=== PATIENT | male | born 1950 | race Asian ===

== ENCOUNTER 2020-11-18 14:29 | Inpatient (IN) | payer MEDICAID ==
[~2020-11-18] VITALS: Ht 160 cm; Wt 58.2 kg
[2020-11-18] MEDS ORDERED: METO-558 PO (14:45)
[2020-11-18] MEDS ORDERED: AMLO2.5T96 PO (14:45)
[2020-11-18] MEDS ORDERED: ASPI-1450 PO (14:45)
[2020-11-18] MEDS ORDERED: IRBE150T51 PO (14:45)
[2020-11-18] MEDS ORDERED: ATOR20TA86 PO (14:45)
[2020-11-18] MEDS ORDERED: APIX2.5T PO (14:45)
[2020-11-18] MEDS ORDERED: COLC0.6T73 PO (14:45)
[2020-11-18] MEDS ORDERED: ALLO-45 PO (14:45)
[2020-11-18] MEDS ORDERED: ASPIRIN 81 MG CHEWABLE TABLET PO ONE (15:30)
[2020-11-18] MEDS ORDERED: DILTIAZEM HCL 5 MG/ML 5 ML VIAL IVP ONE (15:30)
[2020-11-18 15:45] LABS: BASOPHILS % (AUTO) 0.6 % (0.0-2.0); HEMATOCRIT 30.6 % (41-53); LYMPHOCYTES # (AUTO) 0.9 K/uL (1.0-4.8); LYMPHOCYTES % (AUTO) 14.1 % (22.0-44.0); MEAN CORPUSCULAR HEMOGLOBIN 29.1 pg (26.0-34.0); MEAN CORPUSCULAR HGB CONC 32.8 G/dL (31.0-37.0); MEAN CORPUSCULAR VOLUME 89 fL (80-100); MONOCYTES # (AUTO) 0.8 K/uL (0.1-1.0); MONOCYTES % (AUTO) 12.3 % (2.0-9.0); NEUTROPHILS # (AUTO) 4.7 K/uL (1.8-7.7); PLATELET COUNT (AUTO) 288 K/uL (150-450); RED BLOOD CELL COUNT(AUTO) 3.44 MIL/uL (4.50-5.90)
[2020-11-18 15:58] LABS: INR 1.3 (0.9-1.1); PROTHROMBIN TIME 13.7 SEC (9.4-11.6)
[2020-11-18] MEDS ORDERED: DILTIAZEM HCL 125 MG in DEXTROSE 5%-WATER 100 ML IV PRN (16:00)
[2020-11-18 16:05] LABS: COVID AG,FIA SOURCE NASOPHARYNGEAL
[2020-11-18 16:11] LABS: ALBUMIN 2.3 g/dL (3.4-5.0); BILIRUBIN,TOTAL 0.6 mg/dL (0.1-1.0); CALCIUM, TOTAL 8.4 mg/dL (8.8-10.5); CREATININE 2.76 mg/dL (0.60-1.30); FREE T4 (FREE THYROXINE) 2.02 ng/dL (0.76-1.46); POTASSIUM 4.1 mmol/L (3.5-5.1); THYROID STIMULATING HORMONE 0.65 uIU/mL (0.36-3.74); TOTAL PROTEIN, SERUM 7.6 g/dL (6.4-8.2)
[2020-11-18] MEDS ORDERED: DOXYCYCLINE HYCLATE 100 MG in DEXTROSE 5%-WATER 100 ML IV ONE (16:30)
[2020-11-18] MEDS ORDERED: CefTRIAXone 1 GM/DEXTROSE 50 ML IV ONE (16:30)
[2020-11-18] MEDS ORDERED: 0.9% SODIUM CHLORIDE 10 ML SYRINGE IVP PRN (16:45)
[2020-11-18] MEDS ORDERED: ACETAMINOPHEN 325 MG TABLET PO PRN (17:00)
[2020-11-18] MEDS ORDERED: METOPROLOL SUCCINATE 50 MG ER TABLET PO SCH (17:00)
[2020-11-18] MEDS: FUROSEMIDE 20 MG/2 ML VIAL IVP SCH (17:15)
[2020-11-18 20:53] LABS: AMPHET/METH SCREEN,URINE NEGATIVE (NEGATIVE); BARBITURATE SCREEN, URINE NEGATIVE (NEGATIVE); BENZODIAZEPINES SCREEN,URINE NEGATIVE (NEGATIVE); CANNABINOID SCREEN,URINE NEGATIVE (NEGATIVE); COCAINE SCREEN,URINE NEGATIVE (NEGATIVE); METHADONE SCREEN, URINE NEGATIVE (NEGATIVE); OPIATE SCREEN,URINE NEGATIVE (NEGATIVE)
[2020-11-18 20:57] LABS: PHENCYCLIDINE SCREEN,URINE NEGATIVE (NEGATIVE)
[2020-11-18] MEDS ORDERED: APIXABAN 2.5 MG TABLET PO SCH (21:00)
[2020-11-18] MEDS: DOCUSATE SODIUM 100 MG CAPSULE PO SCH (21:00)
[2020-11-18] MEDS: METHIMAZOLE 5 MG TABLET PO SCH (21:11)
[2020-11-18] MEDS: HEPARIN SODIUM,PORCINE 5,000 UNITS/ML VIAL SQ SCH (21:11)
[2020-11-18 21:28] VITALS: BP 148/95
[2020-11-18] MEDS: METOPROLOL TARTRATE 25 MG TABLET PO SCH (23:52)
[2020-11-18 23:57] VITALS: BP 122/69
[2020-11-19] MEDS ORDERED: SODIUM CHLORIDE 0.9% 250 ML IV ONE (04:55)
[2020-11-19] MEDS: DOXYCYCLINE HYCLATE 100 MG in DEXTROSE 5%-WATER 100 ML IV SCH ×2 (05:02→17:16)
[2020-11-19 05:07] VITALS: BP 109/66
[2020-11-19] MEDS: METOPROLOL TARTRATE 25 MG TABLET PO SCH ×3 (06:00→18:23)
[2020-11-19 06:14] LABS: BASOPHILS % (AUTO) 0.4 % (0.0-2.0); EOSINOPHILS % (AUTO) 3.6 % (1.0-6.0); HEMATOCRIT 31.3 % (41-53); HEMOGLOBIN 10.2 g/dL (13.5-17.5); LYMPHOCYTES # (AUTO) 0.9 K/uL (1.0-4.8); LYMPHOCYTES % (AUTO) 12.5 % (22.0-44.0); MEAN CORPUSCULAR HEMOGLOBIN 28.8 pg (26.0-34.0); MEAN CORPUSCULAR HGB CONC 32.5 G/dL (31.0-37.0); MEAN CORPUSCULAR VOLUME 89 fL (80-100); MONOCYTES # (AUTO) 0.7 K/uL (0.1-1.0); MONOCYTES % (AUTO) 8.9 % (2.0-9.0); NEUTROPHILS # (AUTO) 5.5 K/uL (1.8-7.7); NEUTROPHILS % (AUTO) 74.6 % (40.0-70.0); PLATELET COUNT (AUTO) 314 K/uL (150-450); RED BLOOD CELL COUNT(AUTO) 3.53 MIL/uL (4.50-5.90); RED CELL DISTRIBUTION WIDTH 15.2 % (11.5-14.5)
[2020-11-19 06:58] LABS: ALBUMIN 2.4 g/dL (3.4-5.0); BILIRUBIN,TOTAL 0.5 mg/dL (0.1-1.0); CALCIUM, TOTAL 8.7 mg/dL (8.8-10.5); CREATININE 2.72 mg/dL (0.60-1.30); MAGNESIUM 2.2 mg/dL (1.80-2.40); POTASSIUM 4.8 mmol/L (3.5-5.1); TOTAL PROTEIN, SERUM 7.3 g/dL (6.4-8.2)
[2020-11-19 07:50] VITALS: BP 107/68
[2020-11-19] MEDS: HEPARIN SODIUM,PORCINE 5,000 UNITS/ML VIAL SQ SCH (08:33)
[2020-11-19] MEDS: DOCUSATE SODIUM 100 MG CAPSULE PO SCH ×2 (08:34→21:31)
[2020-11-19] MEDS: FAMOTIDINE 20 MG TABLET PO SCH (08:34)
[2020-11-19] MEDS: METHIMAZOLE 5 MG TABLET PO SCH (08:34)
[2020-11-19] MEDS: FUROSEMIDE 20 MG/2 ML VIAL IVP SCH (08:34)
[2020-11-19 11:35] VITALS: BP 108/69
[2020-11-19 12:27] LABS: APPEARANCE,URINE CLEAR (CLEAR); BILIRUBIN,URINE NEGATIVE (NEGATIVE); GLUCOSE, URINE (UA) NEGATIVE (NEGATIVE); KETONES,URINE NEGATIVE (NEGATIVE); LEUKOCYTE ESTERASE ,URINE NEGATIVE (NEGATIVE); NITRATE,URINE NEGATIVE (NEGATIVE); OCCULT BLOOD,URINE NEGATIVE (NEGATIVE); PROTEIN,URINE SEE CONFIRM (NEGATIVE); UROBILINOGEN,URINE 0.2 mg/dL (<=1.0)
[2020-11-19 12:53] LABS: SULFOSALICYLIC ACID,URINE 3+ (Negative)
[2020-11-19 12:54] LABS: BACTERIA,URINE Rare /HPF (None Seen); RBC,URINE None Seen /HPF (0-2); WBC,URINE 0-2 /HPF (0-5)
[2020-11-19] MEDS ORDERED: HEPARIN SODIUM,PORCINE 5,000 UNITS/ML VIAL IVP PRN ×2 (15:00)
[2020-11-19] MEDS ORDERED: HEPARIN SODIUM,PORCINE 5,000 UNITS/ML VIAL IVP ONE (15:00)
[2020-11-19 15:46] LABS: INR 1.3 (0.9-1.1); PROTHROMBIN TIME 13.5 SEC (9.4-11.6)
[2020-11-19 16:10] VITALS: BP 130/81
[2020-11-19] MEDS: HEPARIN SODIUM 25000 UNITS/D5W 250 ML IV PRN (16:11)
[2020-11-19] MEDS: CefTRIAXone 1 GM/DEXTROSE 50 ML IV SCH (16:15)
[2020-11-19 20:39] VITALS: BP 114/75
[2020-11-19 23:30] VITALS: BP 116/69
[2020-11-20] MEDS: METOPROLOL TARTRATE 25 MG TABLET PO SCH ×4 (00:24→17:39)
[2020-11-20 01:31] LABS: CREATININE,URINE RANDOM 52.8 mg/dL (30.0-125.0)
[2020-11-20 04:59] VITALS: BP 120/86
[2020-11-20] MEDS: DOXYCYCLINE HYCLATE 100 MG in DEXTROSE 5%-WATER 100 ML IV SCH ×2 (05:12→17:06)
[2020-11-20 06:43] LABS: BASOPHILS % (AUTO) 0.8 % (0.0-2.0); EOSINOPHILS % (AUTO) 6.7 % (1.0-6.0); HEMATOCRIT 30.5 % (41-53); LYMPHOCYTES # (AUTO) 0.6 K/uL (1.0-4.8); LYMPHOCYTES % (AUTO) 8.7 % (22.0-44.0); MEAN CORPUSCULAR HEMOGLOBIN 29.1 pg (26.0-34.0); MEAN CORPUSCULAR HGB CONC 32.9 G/dL (31.0-37.0); MEAN CORPUSCULAR VOLUME 88 fL (80-100); MONOCYTES # (AUTO) 0.9 K/uL (0.1-1.0); MONOCYTES % (AUTO) 12.9 % (2.0-9.0); NEUTROPHILS % (AUTO) 70.9 % (40.0-70.0); PLATELET COUNT (AUTO) 311 K/uL (150-450); RED BLOOD CELL COUNT(AUTO) 3.45 MIL/uL (4.50-5.90); RED CELL DISTRIBUTION WIDTH 14.8 % (11.5-14.5)
[2020-11-20 07:08] LABS: ALBUMIN 2.1 g/dL (3.4-5.0); BILIRUBIN,TOTAL 0.4 mg/dL (0.1-1.0); CALCIUM, TOTAL 8.5 mg/dL (8.8-10.5); CREATININE 2.77 mg/dL (0.60-1.30); PHOSPHORUS 3.9 mg/dL (2.5-4.9); TOTAL PROTEIN, SERUM 6.9 g/dL (6.4-8.2)
[2020-11-20 07:49] VITALS: BP 111/72
[2020-11-20] MEDS: DOCUSATE SODIUM 100 MG CAPSULE PO SCH ×2 (09:00→20:53)
[2020-11-20] MEDS: FUROSEMIDE 20 MG/2 ML VIAL IVP SCH (09:00)
[2020-11-20] MEDS: FAMOTIDINE 20 MG TABLET PO SCH (09:00)
[2020-11-20 11:39] VITALS: BP 148/90
[2020-11-20] MEDS: SODIUM BICARBONATE 650 MG TABLET PO SCH ×2 (13:56→20:53)
[2020-11-20] MEDS: HEPARIN SODIUM 25000 UNITS/D5W 250 ML IV PRN (14:27)
[2020-11-20 15:11] VITALS: BP 107/70
[2020-11-20] MEDS: CefTRIAXone 1 GM/DEXTROSE 50 ML IV SCH (15:46)
[2020-11-20 16:25] LABS: SPECIMENTYPE,BODY FLUID PLEURAL
[2020-11-20 17:34] VITALS: BP 102/70
[2020-11-20 17:35] LABS: APPEARANCE,SPUN,BODY FLUID HAZY (CLEAR); APPEARANCE,UNSPUN,BODY FLUID SLIGHTLY CLOUDY (CLEAR)
[2020-11-20 17:36] LABS: COLOR,BODY FLUID YELLOW (LT YELLOW); TOTAL VOLUME,BODY FLUID 900 mL
[2020-11-20 17:46] LABS: BASOPHILS,BODY FLUID 0 %; EOSINOPHILS,BF (ANAL) 0 %; LYMPHOCYTES,BODY FLUID 50 %; MONOCYTES,BODY FLUID 16 %; NEUTROPHILS,BODY FLUID 34 %; PH, BODY FLUID 8; WBC, BODY FLUID 133 /cu. mm.
[2020-11-20 20:31] VITALS: BP 125/75
[2020-11-20] MEDS: APIXABAN 2.5 MG TABLET PO SCH (20:53)
[2020-11-21] VITALS (7 sets, daily range): BP systolic 100–132; BP diastolic 69–80
[2020-11-21] MEDS: METOPROLOL TARTRATE 25 MG TABLET PO SCH ×2 (00:01→05:58)
[2020-11-21] MEDS: DOXYCYCLINE HYCLATE 100 MG in DEXTROSE 5%-WATER 100 ML IV SCH ×2 (05:13→17:50)
[2020-11-21 07:14] LABS: BASOPHILS % (AUTO) 0.7 % (0.0-2.0); EOSINOPHILS % (AUTO) 5.7 % (1.0-6.0); HEMATOCRIT 32.4 % (41-53); HEMOGLOBIN 10.6 g/dL (13.5-17.5); LYMPHOCYTES # (AUTO) 0.7 K/uL (1.0-4.8); LYMPHOCYTES % (AUTO) 9.2 % (22.0-44.0); MEAN CORPUSCULAR HEMOGLOBIN 29.1 pg (26.0-34.0); MEAN CORPUSCULAR HGB CONC 32.7 G/dL (31.0-37.0); MEAN CORPUSCULAR VOLUME 89 fL (80-100); MONOCYTES # (AUTO) 0.8 K/uL (0.1-1.0); MONOCYTES % (AUTO) 10.8 % (2.0-9.0); NEUTROPHILS # (AUTO) 5.7 K/uL (1.8-7.7); NEUTROPHILS % (AUTO) 73.6 % (40.0-70.0); PLATELET COUNT (AUTO) 296 K/uL (150-450); RED BLOOD CELL COUNT(AUTO) 3.64 MIL/uL (4.50-5.90); RED CELL DISTRIBUTION WIDTH 15.5 % (11.5-14.5)
[2020-11-21 07:25] LABS: CALCIUM, TOTAL 8.7 mg/dL (8.8-10.5); CREATININE 2.82 mg/dL (0.60-1.30); POTASSIUM 4.7 mmol/L (3.5-5.1)
[2020-11-21] MEDS: SODIUM BICARBONATE 650 MG TABLET PO SCH ×2 (08:45→20:59)
[2020-11-21] MEDS: DOCUSATE SODIUM 100 MG CAPSULE PO SCH ×2 (08:45→20:59)
[2020-11-21] MEDS: APIXABAN 2.5 MG TABLET PO SCH ×2 (08:45→20:59)
[2020-11-21] MEDS: FUROSEMIDE 20 MG/2 ML VIAL IVP SCH (08:46)
[2020-11-21] MEDS: FAMOTIDINE 20 MG TABLET PO SCH (08:46)
[2020-11-21] MEDS ORDERED: METO25XL PO (12:11)
[2020-11-21] MEDS ORDERED: ASPI-1444 PO (12:11)
[2020-11-21] MEDS ORDERED: APIX5TAB PO (12:11)
[2020-11-21] MEDS: CefTRIAXone 1 GM/DEXTROSE 50 ML IV SCH (17:09)
[2020-11-21] MEDS: METOPROLOL SUCCINATE 50 MG ER TABLET PO SCH (20:59)
[2020-11-22 04:37] VITALS: BP 100/63
[2020-11-22] MEDS: DOXYCYCLINE HYCLATE 100 MG in DEXTROSE 5%-WATER 100 ML IV SCH ×2 (05:23→16:09)
[2020-11-22 06:23] LABS: BASOPHILS % (AUTO) 0.9 % (0.0-2.0); EOSINOPHILS % (AUTO) 10.5 % (1.0-6.0); HEMATOCRIT 31.9 % (41-53); HEMOGLOBIN 10.5 g/dL (13.5-17.5); LYMPHOCYTES # (AUTO) 0.7 K/uL (1.0-4.8); LYMPHOCYTES % (AUTO) 9.5 % (22.0-44.0); MEAN CORPUSCULAR HEMOGLOBIN 29.1 pg (26.0-34.0); MEAN CORPUSCULAR VOLUME 88 fL (80-100); MONOCYTES # (AUTO) 0.9 K/uL (0.1-1.0); MONOCYTES % (AUTO) 12.4 % (2.0-9.0); NEUTROPHILS # (AUTO) 4.7 K/uL (1.8-7.7); NEUTROPHILS % (AUTO) 66.7 % (40.0-70.0); PLATELET COUNT (AUTO) 302 K/uL (150-450); RED BLOOD CELL COUNT(AUTO) 3.62 MIL/uL (4.50-5.90); RED CELL DISTRIBUTION WIDTH 15.3 % (11.5-14.5)
[2020-11-22 06:33] LABS: CALCIUM, TOTAL 8.8 mg/dL (8.8-10.5); CREATININE 2.75 mg/dL (0.60-1.30); POTASSIUM 4.1 mmol/L (3.5-5.1)
[2020-11-22 06:58] LABS: MAGNESIUM 1.9 mg/dL (1.80-2.40); PHOSPHORUS 4.7 mg/dL (2.5-4.9)
[2020-11-22 07:59] VITALS: BP 110/81
[2020-11-22] MEDS: SODIUM BICARBONATE 650 MG TABLET PO SCH ×2 (08:33→20:53)
[2020-11-22] MEDS: FAMOTIDINE 20 MG TABLET PO SCH (08:34)
[2020-11-22] MEDS: APIXABAN 2.5 MG TABLET PO SCH ×2 (08:34→20:53)
[2020-11-22] MEDS: METOPROLOL SUCCINATE 50 MG ER TABLET PO SCH ×2 (08:34→20:53)
[2020-11-22] MEDS: FUROSEMIDE 20 MG/2 ML VIAL IVP SCH (08:34)
[2020-11-22] MEDS: DOCUSATE SODIUM 100 MG CAPSULE PO SCH ×2 (08:35→20:53)
[2020-11-22 11:17] VITALS: BP 125/88
[2020-11-22 15:15] VITALS: BP 116/77
[2020-11-22] MEDS: CefTRIAXone 1 GM/DEXTROSE 50 ML IV SCH (15:34)
[2020-11-22 19:45] VITALS: BP 119/81
[2020-11-22 22:45] VITALS: BP 116/65
[2020-11-23 03:35] VITALS: BP 121/80
[2020-11-23] MEDS: DOXYCYCLINE HYCLATE 100 MG in DEXTROSE 5%-WATER 100 ML IV SCH ×2 (05:01→16:22)
[2020-11-23] MEDS ORDERED: SODIUM CHLORIDE 0.9% 250 ML IV ONE (05:07)
[2020-11-23] MEDS: FAMOTIDINE 20 MG TABLET PO SCH (08:00)
[2020-11-23] MEDS: DOCUSATE SODIUM 100 MG CAPSULE PO SCH ×2 (08:00→20:41)
[2020-11-23] MEDS: APIXABAN 2.5 MG TABLET PO SCH ×2 (08:00→20:41)
[2020-11-23] MEDS: FUROSEMIDE 20 MG/2 ML VIAL IVP SCH (08:01)
[2020-11-23] MEDS: SODIUM BICARBONATE 650 MG TABLET PO SCH ×2 (08:01→20:41)
[2020-11-23] MEDS: METOPROLOL SUCCINATE 50 MG ER TABLET PO SCH ×2 (08:01→20:41)
[2020-11-23 08:10] VITALS: BP 120/78
[2020-11-23 11:55] VITALS: BP 119/82
[2020-11-23] MEDS: CefTRIAXone 1 GM/DEXTROSE 50 ML IV SCH (15:33)
[2020-11-23 17:42] VITALS: BP 102/72
[2020-11-23 19:45] VITALS: BP 110/67
[2020-11-23 23:55] VITALS: BP 120/71
[2020-11-24 04:53] VITALS: BP 101/70
[2020-11-24] MEDS: DOXYCYCLINE HYCLATE 100 MG in DEXTROSE 5%-WATER 100 ML IV SCH (05:05)
[2020-11-24 06:51] LABS: % IRON SATURATION 23.2 % (30-44)
[2020-11-24 07:01] LABS: CALCIUM, TOTAL 9.2 mg/dL (8.8-10.5); CREATININE 2.59 mg/dL (0.60-1.30); MAGNESIUM 1.8 mg/dL (1.80-2.40); PHOSPHORUS 4.8 mg/dL (2.5-4.9); POTASSIUM 3.8 mmol/L (3.5-5.1)
[2020-11-24 07:31] VITALS: BP 117/71
[2020-11-24] MEDS: FUROSEMIDE 20 MG/2 ML VIAL IVP SCH (08:51)
[2020-11-24] MEDS: DOCUSATE SODIUM 100 MG CAPSULE PO SCH (08:52)
[2020-11-24] MEDS: APIXABAN 2.5 MG TABLET PO SCH (08:52)
[2020-11-24] MEDS: SODIUM BICARBONATE 650 MG TABLET PO SCH (08:52)
[2020-11-24] MEDS: METOPROLOL SUCCINATE 50 MG ER TABLET PO SCH (08:52)
[2020-11-24] MEDS: FAMOTIDINE 20 MG TABLET PO SCH (08:53)
[2020-11-24 11:20] VITALS: BP 115/72
[2020-11-24] MEDS ORDERED: APIX2.5T PO (11:30)
[2020-11-24] MEDS ORDERED: DOXY-354 PO (11:33)
== END 2020-11-24 15:40 | disposition home or self-care (01) | DRG 139 ==
LOC: EMS 14:33 → 5N 19:02 → 5S 11-23 15:00
PROVIDERS: ADMIT Internal Medicine; ATTEND Internal Medicine
PROC: 0W9B3ZZ Drainage of Left Pleural Cavity, Percutaneous Approach (ICD-10-PCS; principal; 2020-11-20)
DX: J18.9 Pneumonia, unspecified organism (principal); I50.23 Acute on chronic systolic (congestive) heart failure; E44.0 Moderate protein-calorie malnutrition; J91.8 Pleural effusion in other conditions classified elsewhere; R78.81 Bacteremia; N17.9 Acute kidney failure, unspecified; E11.22 Type 2 diabetes mellitus with diabetic chronic kidney disease; I48.20 Chronic atrial fibrillation, unspecified; E87.1 Hypo-osmolality and hyponatremia; I13.0 Hypertensive heart and chronic kidney disease with heart failure and stage 1 through stage 4 chronic kidney disease, or unspecified chronic kidney disease; E87.2 Acidosis; N18.4 Chronic kidney disease, stage 4 (severe); I42.9 Cardiomyopathy, unspecified; E78.00 Pure hypercholesterolemia, unspecified; E78.5 Hyperlipidemia, unspecified; R80.9 Proteinuria, unspecified; Z20.822 Contact with and (suspected) exposure to COVID-19; E05.90 Thyrotoxicosis, unspecified without thyrotoxic crisis or storm; M10.9 Gout, unspecified; D63.1 Anemia in chronic kidney disease; B95.7 Other staphylococcus as the cause of diseases classified elsewhere; Z79.82 Long term (current) use of aspirin; Z79.01 Long term (current) use of anticoagulants; Z79.899 Other long term (current) drug therapy; Z79.84 Long term (current) use of oral hypoglycemic drugs; Z68.22 Body mass index [BMI] 22.0-22.9, adult
CPT/HCPCS: 32555; 71045; 76942; 80048; 80053; 81001; 81002; 82465; 82570; 82728; 82945; 83540; 83550; 83605; 83615; 83735; 83880; 83986; 84100; 84145; 84156; 84157; 84439; 84443; 84484; 85025; 85610; 85730; 87015; 87040; 87070; 87077; 87101; 87205; 87206; 88108; 88312; 89051; 93005; 93306; 99291; J0696; J1644; J1940; J3490; J7050; J7060; 36415-L1; 36415-TC; U0003